=== PATIENT | female | born 1995 | race Caucasian/White ===

== ENCOUNTER 2019-02-14 20:19 | Emergency (ER) | payer OTHER, SELFPAY ==
[2019-02-14 20:21] VITALS: BP 141/68; PULSE 94; RESP 15; TEMP 37.1; O2SAT 97; BMI 27.7
--- NOTE | 2019-02-14 21:56 | RAD_ITS ---
STUDY: X-RAY CHEST REASON FOR EXAM: Female, 23 years old. Chest pain TECHNIQUE: Frontal and lateral views of the chest. COMPARISON: None. FINDINGS: The lungs are clear and expanded. There is no demonstrated pleural abnormality. Normal size heart. Normal mediastinum and emily. Normal visualized pulmonary arteries. Normal visualized aortic arch and descending thoracic aorta. Normal visualized thoracic spine. Normal visualized ribs, clavicles, and shoulders. There is no demonstrated abnormality of the visualized soft tissue structures of the upper abdomen. RAD/Chest PA and Lateral IMPRESSION: Normal x-ray examination of the chest. Electronically Signed: Derek Delcid MD at 22:50 EDT , Service support ,
--- NOTE | 2019-02-14 22:37 | ED.VISSUMM ---
- ER Visit Summary Date of Service: 02/14/19 Chief Complaint: Cough, hoarse voice and left-sided chest discomfort History of Present Illness: The patient is a 23 F no significant past medical or surgical history. Patient is a college [employer] student. States that since Tuesday she has had a cough of yellowish sputum. She is developed a hoarse voice. But is able to swallow. Having some pleuritic left-sided chest pain. No hemoptysis. No history of DVT or PE. No leg pain or swelling. No shortness of breath. Pain is worse with coughing. Physical Examination: Vital signs stable afebrile. Pulse ox 97% on room air no signs of hypoxia. She is in [place] no distress. HEENT exam unremarkable posterior pharynx normal. No erythema or or exudate. No trouble swallowing or breathing. No stridor. No drooling. TMs normal. Neck nontender no lymphadenopathy. Trachea midline. Lungs clear to auscultation bilaterally. No rales, rhonchi or wheezing. Dry cough. Heart regular rate and rhythm rate about 90 no murmur. Chest wall mild reproducible chest wall discomfort on the left upper chest and also parasternal on the left. No ecchymosis or bruising. No subcu air crepitance. No bony deformity. Abdomen is soft nontender normal bowel sounds no peritoneal signs. Equal symmetrical radial pulses. Calves are nontender without edema or cords. Patient is moving all 4 extremities. Neurologically she is awake and alert with no focal motor deficits. Back is nontender. Test Results: Triage obtain an EKG which shows sinus rhythm rate of 98 with no signs of OH or ischemia. Chest x-ray 2 views shows normal cardiac silhouette. No infiltrate. No pneumothorax. Unremarkable read by myself. Emergency Department Course and Treatment: Clinically patient has a hoarse voice and a cough. This appears to be a viral URI with pleurisy. She is never had a DVT or PE. She has no calf pain or swelling and no hemoptysis. She is not tachycardic nor hypoxic. She does not feel short of breath. I do not feel she needs any further evaluation. Treatment Plan: Treated as a viral URI. Motrin for pain and chest wall inflammation. Return if increasing pain, hemoptysis, feeling worse or shortness of breath. Disposition: Discharge Impression: Acute URI with pleurisy and chest wall pain This note was generated with [employer] dictation software. It may contain incorrect words, spelling, and punctuation that were not noted in review of the chart prior to signing ED Disposition - Plan for ED Patient: Referrals: [facility],Out of [Primary Care Provider] -
--- NOTE | 2019-02-14 22:42 | ED.DCSUM_ITS ---
- ER Visit Summary Date of Service: 02/14/19 Chief Complaint: Cough, hoarse voice and left-sided chest discomfort History of Present Illness: The patient is a 23 F no significant past medical or surgical history. Patient is a college [employer] student. States that since Tuesday she has had a cough of yellowish sputum. She is developed a hoarse voice. But is able to swallow. Having some pleuritic left-sided chest pain. No hemoptysis. No history of DVT or PE. No leg pain or swelling. No shortness of breath. Pain is worse with coughing. Physical Examination: Vital signs stable afebrile. Pulse ox 97% on room air no signs of hypoxia. She is in [place] no distress. HEENT exam unremarkable posterior pharynx normal. No erythema or or exudate. No trouble swallowing or breathing. No stridor. No drooling. TMs normal. Neck nontender no lymphadenopathy. Trachea midline. Lungs clear to auscultation bilaterally. No rales, rhonchi or wheezing. Dry cough. Heart regular rate and rhythm rate about 90 no murmur. Chest wall mild reproducible chest wall discomfort on the left upper chest and also parasternal on the left. No ecchymosis or bruising. No subcu air crepitance. No bony deformity. Abdomen is soft nontender normal bowel sounds no peritoneal signs. Equal symmetrical radial pulses. Calves are nontender without edema or cords. Patient is moving all 4 extremities. Neurologically she is awake and alert with no focal motor deficits. Back is nontender. Test Results: Triage obtain an EKG which shows sinus rhythm rate of 98 with no signs of MT or ischemia. Chest x-ray 2 views shows normal cardiac silhouette. No infiltrate. No pneumothorax. Unremarkable read by myself. Emergency Department Course and Treatment: Clinically patient has a hoarse voice and a cough. This appears to be a viral URI with pleurisy. She is never had a DVT or PE. She has no calf pain or swelling and no hemoptysis. She is not tachycardic nor hypoxic. She does not feel short of breath. I do not feel she needs any further evaluation. Treatment Plan: Treated as a viral URI. Motrin for pain and chest wall inflammation. Return if increasing pain, hemoptysis, feeling worse or shortness of breath. Disposition: Discharge Impression: Acute URI with pleurisy and chest wall pain This note was generated with [employer] dictation software. It may contain incorrect words, spelling, and punctuation that were not noted in review of the chart prior to signing ED Disposition - Plan for ED Patient: Referrals: [facility],Out of [Primary Care Provider] -
--- NOTE | 2019-02-14 22:42 | ED.DEP ---
ED Disposition - Plan for ED Patient: Disposition: Home or Assisted Living Instructions: ED URI Viral, ED Chest Pain Pleurisy Referrals: [facility] Doctor,Out of [Primary Care Provider] - 1 Week if not improving Additional Instructions: Motrin for chest wall pain and inflammation of the lung. 600 mg 3 times a day with food on her stomach. This should progressively start feeling better. Return if feeling worse, increasing pain, shortness of breath or coughing up blood. Follow-up your doctor if not improving.
--- NOTE | 2019-02-14 22:59 | EKG12_ITS ---
Test Reason : CP Blood Pressure : / mmHG Vent. Rate : 098 BPM Atrial Rate : 098 BPM P-R Int : 152 ms QRS Dur : 086 ms QT Int : 352 ms P-R-T Axes : 063 055 045 degrees QTc Int : 449 ms Normal sinus rhythm Normal ECG Confirmed by ANCA BALL, ANNALISE ([id number]), news videotape editor KHANG CORTEZ ([id number]) on 02/15/2019 1:15:26 PM Referred By: GRADY Confirmed By:ANNALISE MARCH MD
== END 2019-02-14 22:49 | disposition home or self-care (01) ==
PROVIDERS: Emergency Provider Emergency Medicine; Family Provider Internal Medicine; PCP Internal Medicine
DX: J40 Bronchitis, not specified as acute or chronic (principal); R09.1 Pleurisy; J06.9 Acute upper respiratory infection, unspecified; Z79.3 Long term (current) use of hormonal contraceptives
CPT/HCPCS: 71046; 93005; 99282